=== PATIENT | male | born 1950 | race African-American/Black ===

== ENCOUNTER 2017-10-08 22:11 | Observation (INO) | payer OTHER ==
[2017-10-08 22:26] VITALS: BMI 24.3
[2017-10-08] MEDS ORDERED: ASPIRIN PO ONE (22:27)
[2017-10-08] MEDS ORDERED: ASPIRIN ONE (22:28)
[2017-10-08] MEDS: NITROSTAT SL PRN ×2 (22:30→23:06)
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
[2017-10-08 22:43] LABS: BASOPHILS % (AUTO) 0.5 % (0.2-1.0); EOSINOPHILS # (AUTO) 0.2 x10^3/uL (0.0-0.2); EOSINOPHILS % (AUTO) 3.1 % (0.9-2.9); HEMATOCRIT 40.8 % (42.0-54.0); HEMOGLOBIN 13.6 g/dL (13.5-18.0); LYMPHOCYTES # (AUTO) 1.9 X10^3/uL (1.3-2.9); LYMPHOCYTES % (AUTO) 36.1 % (21.0-51.0); MEAN CORPUSCULAR HEMOGLOBIN 30.8 pg (27.0-34.0); MEAN CORPUSCULAR HGB CONC 33.4 g/dL (33.0-35.0); MEAN CORPUSCULAR VOLUME 92.1 fL (80.0-100.0); MEAN PLATELET VOLUME 7.1 fL (7.4-11.0); MONOCYTES # (AUTO) 0.4 x10^3/uL (0.3-0.8); MONOCYTES % (AUTO) 6.8 % (0.0-13.0); NEUTROPHILS # (AUTO) 2.9 x10^3/uL (2.2-4.8); NEUTROPHILS % (AUTO) 53.5 % (42.0-75.0); PLATELET COUNT 310 X10^3/uL (150.0-450.0); RED BLOOD COUNT 4.43 X10^6/uL (4.7-6.0); RED CELL DISTRIBUTION WIDTH 16.8 % (11.6-16.5); WHITE BLOOD COUNT 5.4 X10^3/uL (3.6-10.0)
--- NOTE | 2017-10-08 22:51 | RAD ---
AP chest Indication: Chest pain and cough Comparison: 09/01/2015 Findings: The heart size is normal. Trachea is midline. There is no focal airspace opacity, pleural e ffusion or pneumothorax. There is mild coarsened interstitium similar prior exam. Advanced right and moderate left AC joint osteoarthrosis. There appear to be chronic appearing fracture deformities of t he posterior lateral left 5th and 6th ribs. Impression: Chronic interstitial lung changes without acute airspace disease or CHF. Suspected chronic fracture deformities of the post lateral left 5th and 6th ribs needs clinical corre lation. Reported By:
[2017-10-08 23:00] LABS: BLOOD UREA NITROGEN 10 mg/dL (7-18); CALCIUM 9.2 mg/dL (8.5-10.1); CARBON DIOXIDE 27.4 mmol/L (21-32); CHLORIDE 102 mmol/L (98-107); SODIUM 137 mmol/L (136-145); TROPONIN I 0.25 ng/mL (0-1.5); eGFR BLACK RACES > 60 (>60); eGFR NON BLACK RACES > 60 (>60)
[2017-10-08 23:23] LABS: ALANINE AMINOTRANSFERASE 24 Units/L (12-78); ALBUMIN 3.4 g/dL (3.4-5.0); ALKALINE PHOSPHATASE 75 Units/L (46-116); ASPARTATE AMINO TRANSFERASE 44 Units/L (15-37); CKMB % 0.5 % (<4); CREATINE KINASE 869 Units/L (39-308); MAGNESIUM 1.7 mg/dL (1.7-2.9); TOTAL PROTEIN 8.8 g/dL (6.4-8.2)
[2017-10-08 23:24] LABS: CREATINE KINASE MB 4.2 ng/mL (0-4.0)
[2017-10-09 00:48] LABS: CKMB % 0.5 % (<4); TROPONIN I 0.25 ng/mL (0-1.5)
[2017-10-09] MEDS ORDERED: NS 100 ML IV 100 ML IV ONE (00:48)
[2017-10-09 01:08] LABS: CREATINE KINASE MB 3.9 ng/mL (0-4.0)
--- NOTE | 2017-10-09 01:58 | CT ---
CTA chest with contrast per pulmonary embolism protocol Indication: Chest pain with elevated D-dimer Comparison: None available Technique: Multiple axial images of the chest were obtained from the thoracic inlet to the upper abdo men after the administration of IV contrast.Coronal and Sagittal MIP images were also provided. Findings: No central or segmental pulmonary arterial filling defect is identified. There is normal caliber of t he pulmonary artery without CT evidence or right heart strain. The thyroid gland is normal. Heart size is normal without pericardial effusion. There is fairly sever e calcified atherosclerotic disease of the coronary arteries. Thoracic aorta is normal in caliber and configuration with scattered calcified atherosclerotic disease. There are mildly enlarged, centrally calcified upper mediastinal, prevascular, AP window, precarinal and subcarinal lymph nodes. There is calcification of a nonenlarged right hilar lymph node and punctate calcifications within the left hi lum. There is mild centrilobular and paraseptal emphysematous change with diffuse peribronchial thick ening. No focal airspace opacity identified. However, there is an approximate 5 mm nodule within the lingula on axial image 65. No pleural effusion or pneumothorax. Imaging of the upper abdomen demonstr ates no acute abnormality. Multiple fractures are noted within the left anterior ribs, the left anterior 3rd, 4th, 5th and later al 6th rib fractures are not definitely chronic and correlate for point tenderness is recommended to exclude acute rib fractures. IMPRESSION: 1. No PTE identified. 2. Age-indeterminate fractures involving the left anterior 3rd through 5th and lateral left 6th ribs needs correlation for point tenderness to determine if this represents an acute or chronic fracture deformity. No pneumothorax. 3. Mediastinal and right hilar calcified lymph nodes are consistent with sequela of chronic granuloma tous disease. 4. An approximate 5 mm nodule within the lingula needs correlation with follow-up chest CT in 6-12 mo nths. 5. Mild centrilobular paraseptal emphysema and diffuse peribronchial thickening consistent with COPD. No acute airspace disease. Reported By:
[2017-10-09] MEDS ORDERED: ASPIRIN EC 81 MG PO SCH (03:00)
[2017-10-09] MEDS ORDERED: FLUVIRIN IM ONE ×2 (03:53→10:37)
[2017-10-09 05:51] LABS: ALANINE AMINOTRANSFERASE 22 Units/L (12-78); ALBUMIN 3.2 g/dL (3.4-5.0); ALKALINE PHOSPHATASE 71 Units/L (46-116); ASPARTATE AMINO TRANSFERASE 43 Units/L (15-37); BLOOD UREA NITROGEN 10 mg/dL (7-18); CALCIUM 8.9 mg/dL (8.5-10.1); CARBON DIOXIDE 27.4 mmol/L (21-32); CHLORIDE 104 mmol/L (98-107); CHOL/HDL RATIO 3.1 (0.0-5.0); CHOLESTEROL 150 mg/dL (0-200); COR CA(FOR HYPOALB) 9.5 mg/dL (8.5-10.1); CREATININE 0.95 mg/dL (0.70-1.30); HDL CHOLESTEROL 48 mg/dL (40-60); MAGNESIUM 1.7 mg/dL (1.7-2.9); SODIUM 140 mmol/L (136-145); TOTAL PROTEIN 8.3 g/dL (6.4-8.2); TRIGLYCERIDES 66 mg/dL (0-150); eGFR BLACK RACES > 60 (>60); eGFR NON BLACK RACES > 60 (>60)
[2017-10-09 06:19] LABS: CKMB % 0.4 % (<4); CREATINE KINASE MB 3.2 ng/mL (0-4.0); TROPONIN I 0.31 ng/mL (0-1.5)
[2017-10-09 06:20] LABS: BASOPHILS % (AUTO) 0.5 % (0.2-1.0); EOSINOPHILS # (AUTO) 0.1 x10^3/uL (0.0-0.2); EOSINOPHILS % (AUTO) 3.2 % (0.9-2.9); HEMATOCRIT 39.4 % (42.0-54.0); HEMOGLOBIN 13.2 g/dL (13.5-18.0); LYMPHOCYTES # (AUTO) 1.9 X10^3/uL (1.3-2.9); LYMPHOCYTES % (AUTO) 42.8 % (21.0-51.0); MEAN CORPUSCULAR HEMOGLOBIN 30.9 pg (27.0-34.0); MEAN CORPUSCULAR HGB CONC 33.5 g/dL (33.0-35.0); MEAN CORPUSCULAR VOLUME 92.3 fL (80.0-100.0); MEAN PLATELET VOLUME 7.7 fL (7.4-11.0); MONOCYTES # (AUTO) 0.5 x10^3/uL (0.3-0.8); MONOCYTES % (AUTO) 11.4 % (0.0-13.0); NEUTROPHILS # (AUTO) 1.8 x10^3/uL (2.2-4.8); NEUTROPHILS % (AUTO) 42.1 % (42.0-75.0); PLATELET COUNT 306 X10^3/uL (150.0-450.0); RED BLOOD COUNT 4.27 X10^6/uL (4.7-6.0); WHITE BLOOD COUNT 4.4 X10^3/uL (3.6-10.0)
[2017-10-09 08:42] VITALS: BP 115/70
[2017-10-09] MEDS ORDERED: NS 250 ML IV 250 ML IV ONE (08:59)
[2017-10-09] MEDS ORDERED: PEPCID 20 MG IV PREMIX* 20 MG/50 ML BAG IV SCH (09:00)
[2017-10-09 11:17] LABS: CKMB % 0.3 % (<4); CREATINE KINASE MB 2.6 ng/mL (0-4.0); TROPONIN I 0.28 ng/mL (0-1.5)
== END 2017-10-09 11:42 | disposition home or self-care (01) | DRG 313 ==
LOC: ER 22:16 → MED/SURG 10-09 02:30
PROVIDERS: ADMIT Obstetrics & Gynecology Obstetrics; ATTEND Obstetrics & Gynecology Obstetrics
PROC: 3E0234Z Introduction of Serum, Toxoid and Vaccine into Muscle, Percutaneous Approach (ICD-10-PCS; principal; 2017-10-09)
DX: R07.2 Precordial pain (principal); I10 Essential (primary) hypertension; R79.89 Other specified abnormal findings of blood chemistry; Z23 Encounter for immunization; R06.02 Shortness of breath; R53.1 Weakness; M54.5 Low back pain; R91.1 Solitary pulmonary nodule; R07.81 Pleurodynia
CPT/HCPCS: 36415; 71010; 71275; 80053; 80061; 82550; 82553; 83735; 84484; 85025; 85378; 85610; 85730; 90686; 93005; 93010; 94760; 96365; 99284; A4216; A4222; S0028; G0378

== ENCOUNTER 2018-03-10 16:42 | Emergency (ER) | payer OTHER ==
[2018-03-10 17:22] VITALS: BP 194/97; BMI 25.0
[2018-03-10] MEDS ORDERED: NORFLEX INJ IM ONE (19:07)
[2018-03-10] MEDS ORDERED: TORADOL 60 MG VIAL IM ONE (19:07)
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
[2018-03-10] MEDS ORDERED: NORFLEX INJ ONE (19:15)
[2018-03-10] MEDS ORDERED: TORADOL 60 MG VIAL ONE (19:16)
--- NOTE | 2018-03-10 19:30 | RAD ---
Examination: Left knee, two views History: Pain in knee Findings: No acute fracture or dislocation. Degenerative narrowing medial compartment with marginal o steophyte formation. Bone fragment noted adjacent to the surface of the medial femoral condyles. Surg ical fixation hardware is noted in the proximal tibia. No bone destruction or synovial effusion is de monstrated. Impression: 1. Medial compartment osteoarthritis. Postsurgical findings proximal tibia. 2. Ossification adjacent to the medial femoral condyle compatible with posttraumatic residual followi ng injury to the medial collateral ligament. Reported By:
--- NOTE | 2018-03-10 19:33 | RAD ---
Examination: Lumbar spine, five views History: Pain Findings: Normal curvature, segmentation and alignment. Disc spaces, pedicles and sacroiliac joints n ormal in appearance. There is localized depression of the superior endplate of L2. No acute fracture or bone destruction is seen. Pedicles and sacroiliac joints intact. Impression: No acute findings. Compression deformity L2 vertebra is nonacute and unchanged when philly red to previous examination from 2010. Reported By:
== END 2018-03-10 20:21 | disposition home or self-care (01) ==
LOC: ER 16:57
DX: S83.412A Sprain of medial collateral ligament of left knee, initial encounter (principal); M19.90 Unspecified osteoarthritis, unspecified site; Y33.XXXA Other specified events, undetermined intent, initial encounter; Y92.9 Unspecified place or not applicable
CPT/HCPCS: 72110; 73560; 96372; 99283; J1885; J2360

== ENCOUNTER → 2018-04-01 | Outpatient (CLI) | payer OTHER ==
[2018-03-10 17:22] VITALS: BP 194/97
[2018-04-01 09:50] LABS: BASOPHILS % (AUTO) 0.8 % (0.2-1.0); EOSINOPHILS # (AUTO) 0.1 x10^3/uL (0.0-0.2); EOSINOPHILS % (AUTO) 3.3 % (0.9-2.9); HEMATOCRIT 37.4 % (42.0-54.0); HEMOGLOBIN 12.7 g/dL (13.5-18.0); LYMPHOCYTES # (AUTO) 1.8 X10^3/uL (1.3-2.9); LYMPHOCYTES % (AUTO) 41.8 % (21.0-51.0); MEAN CORPUSCULAR HEMOGLOBIN 30.6 pg (27.0-34.0); MEAN CORPUSCULAR HGB CONC 34.1 g/dL (33.0-35.0); MEAN CORPUSCULAR VOLUME 89.8 fL (80.0-100.0); MEAN PLATELET VOLUME 7.4 fL (7.4-11.0); MONOCYTES # (AUTO) 0.2 x10^3/uL (0.3-0.8); MONOCYTES % (AUTO) 5.7 % (0.0-13.0); NEUTROPHILS % (AUTO) 48.4 % (42.0-75.0); PLATELET COUNT 225 X10^3/uL (150.0-450.0); RED BLOOD COUNT 4.16 X10^6/uL (4.7-6.0); RED CELL DISTRIBUTION WIDTH 16.1 % (11.6-16.5); WHITE BLOOD COUNT 4.2 X10^3/uL (3.6-10.0)
[2018-04-01 10:01] LABS: ALANINE AMINOTRANSFERASE 33 Units/L (12-78); ALBUMIN 3.7 g/dL (3.4-5.0); ALKALINE PHOSPHATASE 80 Units/L (46-116); ASPARTATE AMINO TRANSFERASE 68 Units/L (15-37); BLOOD UREA NITROGEN 6 mg/dL (7-18); CALCIUM 8.6 mg/dL (8.5-10.1); CARBON DIOXIDE 25.6 mmol/L (21-32); CHLORIDE 103 mmol/L (98-107); CHOL/HDL RATIO 2.5 (0.0-5.0); CHOLESTEROL 145 mg/dL (0-200); CREATININE 0.91 mg/dL (0.70-1.30); HDL CHOLESTEROL 59 mg/dL (40-60); SODIUM 139 mmol/L (136-145); TOTAL PROTEIN 9.3 g/dL (6.4-8.2); TRIGLYCERIDES 51 mg/dL (0-150); eGFR BLACK RACES > 60 (>60); eGFR NON BLACK RACES > 60 (>60)
[2018-04-01 11:18] LABS: ERYTHROCYTE SEDIMENTATION RATE 70 MM/HOUR (0-15)
== END ==
LOC: LAB 09:26
PROVIDERS: ATTEND Nurse Practitioner Family
DX: E78.4 Other hyperlipidemia (principal); N40.1 Benign prostatic hyperplasia with lower urinary tract symptoms; M15.0 Primary generalized (osteo)arthritis; R07.89 Other chest pain; R79.82 Elevated C-reactive protein (CRP); R70.0 Elevated erythrocyte sedimentation rate
CPT/HCPCS: 36415; 80053; 80061; 84153; 85025; 85652; 86140

== ENCOUNTER → 2018-04-03 | Outpatient (CLI) | payer OTHER ==
[2018-03-10 17:22] VITALS: BP 194/97
--- NOTE | 2018-04-03 08:35 | RAD ---
HISTORY: Chest pain Study: Two views of chest Comparison: October 08, 2017 Findings: The trachea is midline. The cardiac silhouette is unremarkable. The lungs are clear without focal i nfiltrate or effusion. IMPRESSION: 1. No acute cardiopulmonary disease. Reported By:
--- NOTE | 2018-04-03 08:37 | RAD ---
HISTORY: Chronic low back pain Study: Three views of the lumbar spine Comparison: March 10, 2018 Findings: Images demonstrate 5 [id number] lumbar vertebral bodies. A chronic mild anterior compression def ormity of L2 is again demonstrated. Degenerate facet changes are seen throughout the lumbar spine. Mi ld multilevel osteophytosis is also noted. Atherosclerotic changes are seen within the visualized aor ta. IMPRESSION: Chronic mild anterior compression deformity of the [id number] body which has not significantly kemp ed since prior exam. Degenerative changes as noted above. Reported By:
--- NOTE | 2018-04-03 08:38 | RAD ---
HISTORY: Chronic back pain Study: Three views of the thoracic spine Comparison: March 20, 2013 Findings: Images demonstrate 12 rib-bearing thoracic vertebral bodies. The thoracic vertebral body heights are relatively maintained. No evidence of significant subluxation is identified. Mild degenerate facet ch anges are seen throughout the thoracic spine. Multilevel osteophytosis is also noted. IMPRESSION: 1. Degenerative changes as noted above. Reported By:
[2018-04-05 12:03] LABS: ALBUMIN (SPEP) 3.94 g/dL (3.75-5.01); ALPHA-2 (SPEP) 0.96 g/dL (0.48-1.05); GAMMA (SPEP) 2.23 g/dL (0.62-1.51)
[2018-04-05 14:01] LABS: ANTI-NUCLEAR ANTIBODY TEST Detected (None Detected)
== END ==
LOC: LAB 07:48
PROVIDERS: ATTEND Nurse Practitioner Family
DX: R70.0 Elevated erythrocyte sedimentation rate (principal); R77.8 Other specified abnormalities of plasma proteins; R07.89 Other chest pain; M54.5 Low back pain; M54.6 Pain in thoracic spine
CPT/HCPCS: 71046; 72072; 72100; 84165; 86308; 86334

== ENCOUNTER → 2018-04-08 | Outpatient (CLI) | payer OTHER ==
[2018-03-10 17:22] VITALS: BP 194/97
--- NOTE | 2018-04-08 13:50 | CT ---
HISTORY: Follow-up pulmonary nodule Study: CT chest without contrast Comparison: Chest CT 10/09/2017, abdomen CT 05/09/2013 Technique: Multiple axial images of the chest were obtained from the thoracic inlet to the upper abdo men without IV contrast. Dose reduction techniques including Automated Exposure Control (AEC) and ad justment of mA and kV were utilized. Findings: Please note evaluation is limited without IV contrast. Vessel patency not assessed. Calcified plaque is seen in the coronary arteries and aortic arch. Heart size is normal. The aorta appears normal in c ourse and caliber. The lungs are clear without effusion, consolidation, or pneumothorax. Airways are patent. There is a stable joby 5 mm pulmonary nodule in the lingula on axial image 40 dating back to 2012, compatible with a benign nodule. Multiple calcified mediastinal nodes are seen compatible with chronic granulomatous changes. There are chronic right-sided rib deformities and stable chronic L2 compression fracture and left L2 transverse process fracture. There are now acute fractures of the right L1 and L2 transverse processe s. The visualized portions of the upper abdomen are grossly unremarkable. IMPRESSION: 1. Stable pulmonary nodule in the lingula dating back to 2012, compatible with a benign nodule. 2. There are acute/recent appearing fractures of the right L1 and L2 transverse processes. 3. Chronic fractures of the right lateral ribs, L2 vertebral body and left L2 transverse process. 4. Coronary atherosclerotic disease. Reported By:
== END ==
LOC: RAD 11:42
PROVIDERS: ATTEND Nurse Practitioner Family
DX: R91.1 Solitary pulmonary nodule (principal)
CPT/HCPCS: 71250